=== PATIENT | female | born 1980 | race Caucasian/White ===

== ENCOUNTER 2020-09-20 14:54 | Outpatient (REF) | payer OTHER, SELFPAY ==
[2020-09-20 16:50] LABS: MANUAL DIFF FLAG NO
[2020-09-20 16:54] LABS: Basophils Percent Auto 0.4 % (0-2); Eosinophils Absolute Auto 0.1 X10*3/uL (0.0-0.4); Eosinophils Percent Auto 1.5 % (0-4); Hematocrit 38.5 % (37-47); Hemoglobin 12.9 g/dl (12.0-16.0); Imm Gran Abs Auto 0.01 X10*3/uL (0.00-0.03); Imm Gran Pct Auto 0.2 % (0.0-0.4); Lymphocytes Absolute Auto 1.5 X10*3/uL (1.2-4.9); Lymphocytes Percent Auto 32.6 % (20-40); Mean Corpuscular HGB Conc 33.5 g/dl (31.0-35.0); Mean Corpuscular Hemoglobin 30.1 pg (27.0-33.0); Mean Platelet Volume 9.8 fL (9.4-12.3); Monocytes Absolute Auto 0.4 X10*3/uL (0.1-1.2); Monocytes Percent Auto 7.6 % (2-11); Neutrophils Absolute Auto 2.7 X10*3/uL (2.0-8.3); Neutrophils Percent Auto 57.7 % (45-73); Platelet Count 224 X10*3/uL (160-400); Red Blood Count 4.28 X10*6/uL (4.20-5.50); Red Cell Distribution Width 12.4 % (11.0-16.0); White Blood Count 4.6 X10*3/uL (4.8-10.8)
[2020-09-20 17:35] LABS: Alanine Aminotransferase 14 U/L (0-31); Albumin Level 4.3 g/dL (3.5-5.0); Alkaline Phosphatase 54 U/L (39-117); Amylase 59 U/L (28-100); Aspartate Amino Transferase 19 U/L (5-31); Bilirubin Direct 0.7 mg/dL (0.0-0.5); Bilirubin Total 1.6 mg/dL (0.0-1.0); Lipase 50 U/L (8-78); Total Protein 6.6 g/dL (6.5-8.0)
== END 2020-09-20 14:55 | disposition home or self-care (01) ==
LOC: HO.LAB 14:54
PROVIDERS: Visit Provider Internal Medicine
DX: R10.84 Generalized abdominal pain (principal)
CPT/HCPCS: 36415; 80076; 82150; 83690; 85025

== ENCOUNTER 2020-09-23 07:16 | Outpatient (REF) | payer OTHER, SELFPAY ==
--- NOTE | 2020-09-23 | US_ITS ---
EXAMINATION: US ABDOMEN COMPLETE CLINICAL INFORMATION: Abdominal pain, acute, generalized. COMPARISON: Report of abdomen ultrasound 09/10/17 TECHNIQUE: Real-time imaging of the abdominal viscera. FINDINGS: PANCREAS: No suspicious abnormality in the visualized portions of the pancreas ABDOMINAL AORTA: The proximal, mid, and distal segments are normal in caliber. INFERIOR VENA CAVA: Visualized portions are normal. LIVER: No suspicious abnormality. The liver is normal in size. The liver contour is normal. Parenchymal echogenicity is normal. No focal hepatic lesion. There is no intrahepatic biliary duct dilatation seen. GALLBLADDER: Normal. The gallbladder is physiologically distended without evidence of stones, sludge, polyps, wall thickening or pericholecystic fluid. No reported tenderness to transducer pressure over the gallbladder. COMMON BILE DUCT: Normal in caliber measuring 0.3 cm in diameter. RIGHT KIDNEY: Normal. No hydronephrosis. No renal calculi or focal parenchymal lesions. The kidney measures 9.3 cm in maximum dimension. LEFT KIDNEY: Normal. No hydronephrosis. No renal calculi or focal parenchymal lesions. The kidney measures 9.4 cm in maximum dimension. SPLEEN: There is a small splenule of no clinical significance. The spleen measures 11.3 cm in maximum dimension. FREE FLUID: None. US/US abdomen complete IMPRESSION: No abnormality demonstrated. Specifically no cholelithiasis or biliary dilation.
== END 2020-09-23 07:17 | disposition home or self-care (01) ==
LOC: HO.US 07:16
PROVIDERS: Visit Provider Internal Medicine
DX: R10.84 Generalized abdominal pain (principal)
CPT/HCPCS: 76700

== ENCOUNTER 2020-10-11 08:46 | Outpatient (REF) | payer OTHER, SELFPAY ==
[2020-10-11 09:44] LABS: Estimated Average Glucose 80 mg/dL; Hemoglobin A1c % 4.4 %
== END 2020-10-11 08:47 | disposition home or self-care (01) ==
LOC: HO.LAB 08:46
PROVIDERS: PCP Nurse Practitioner Adult Health; Visit Provider Pediatrics
DX: E10.3299 Type 1 diabetes mellitus with mild nonproliferative diabetic retinopathy without macular edema, unspecified eye (principal)
CPT/HCPCS: 83036

== ENCOUNTER → 2021-01-31 07:34 | Outpatient (REF) | payer OTHER, SELFPAY ==
--- NOTE | ~2021-01-31 | NM_ITS ---
EXAMINATION: RADIONUCLIDE SOLID FOOD GASTRIC EMPTYING 4-HOUR STUDY CLINICAL INFORMATION: Early satiety, abdominal pain, type 1 diabetes mellitus. COMPARISON: No previous gastric emptying study is available for comparison. TECHNIQUE: A standard meal consisting of 4 oz of Egg Beaters brand equivalent tagged was 1.0 mCi Tc-99m Sulfur Colloid, 8 oz water and 2 slices of toast with jelly was administered orally to the patient. Images were obtained using a dual head gamma camera in the anterior and posterior projections over of the stomach immediately post ingestion and at hourly intervals up to 4 hours post ingestion. The anterior and posterior counts at each time interval were averaged using the geometric mean and expressed as percentage of the immediate post ingestion counts. FINDINGS: There is good visualization of activity in the stomach immediately post ingestion. As the study progresses, there is good clearance of activity from the stomach and visualization of progressively increasing small bowel activity. By the end of the study, there is almost no retention noted in the stomach. Retention in the stomach at each time interval was: 1 hour 81% (normal 37%-90%) 2 hours 22% (normal 30%-60%) 3 hours 5% 4 hours 3% (normal 0%-10%) NM/NM gastric emptying study IMPRESSION: Normal 4-hour solid food gastric emptying study.
== END ==
LOC: HO.NUCMED 07:34
PROVIDERS: PCP Nurse Practitioner Adult Health; Visit Provider Internal Medicine
DX: R10.84 Generalized abdominal pain (principal); R68.81 Early satiety
CPT/HCPCS: 78264; A9541

== ENCOUNTER 2021-05-06 10:18 | Outpatient (REF) | payer OTHER, SELFPAY ==
[2021-05-06 11:17] LABS: MANUAL DIFF FLAG NO
[2021-05-06 11:27] LABS: Basophils Percent Auto 0.4 % (0-2); Eosinophils Absolute Auto 0.1 X10*3/uL (0.0-0.4); Hematocrit 40.8 % (37-47); Hemoglobin 13.5 g/dl (12.0-16.0); Imm Gran Abs Auto 0.02 X10*3/uL (0.00-0.03); Imm Gran Pct Auto 0.4 % (0.0-0.4); Lymphocytes Absolute Auto 1.4 X10*3/uL (1.2-4.9); Lymphocytes Percent Auto 29.7 % (20-40); Mean Corpuscular HGB Conc 33.1 g/dl (31.0-35.0); Mean Corpuscular Hemoglobin 29.3 pg (27.0-33.0); Mean Corpuscular Volume 88.5 fL (80-98); Mean Platelet Volume 9.9 fL (9.4-12.3); Monocytes Absolute Auto 0.4 X10*3/uL (0.1-1.2); Monocytes Percent Auto 9.3 % (2-11); Neutrophils Absolute Auto 2.7 X10*3/uL (2.0-8.3); Neutrophils Percent Auto 57.2 % (45-73); Platelet Count 241 X10*3/uL (160-400); Red Blood Count 4.61 X10*6/uL (4.20-5.50); Red Cell Distribution Width 12.3 % (11.0-16.0); White Blood Count 4.7 X10*3/uL (4.8-10.8)
[2021-05-06 11:30] LABS: Estimated Average Glucose 88 mg/dL; Hemoglobin A1c % 4.7 %
[2021-05-06 11:43] LABS: Alanine Aminotransferase 17 U/L (0-31); Albumin Level 4.6 g/dL (3.5-5.0); Alkaline Phosphatase 54 U/L (39-117); Anion Gap 13 (12-20); Aspartate Amino Transferase 23 U/L (5-31); Bilirubin Total 2.3 mg/dL (0.0-1.0); Blood Urea Nitrogen 6 mg/dL (9-16); Calcium 9.5 mg/dL (8.4-10.2); Carbon Dioxide 25 mmol/L (22-29); Chloride 106 mmol/L (96-108); Cholesterol 124 mg/dL; Estimated Glomerular Filt Rate > 60; Glucose Random 111 mg/dL (60-115); HDL Cholesterol 65 mg/dL; LDL Cholesterol Calculated 48 mg/dl; Potassium 4.2 mmol/L (3.3-5.1); Sodium 140 mmol/L (135-145); Triglycerides 59 mg/dL
[2021-05-06 11:48] LABS: Creatinine Urine 11.93 mg/dL; Microalbumin Urine < 5.0 mg/L
[2021-05-06 12:05] LABS: Thyroid Stimulating Hormone 1.86 uIU/mL (0.32-4.0)
== END 2021-05-06 10:19 | disposition home or self-care (01) ==
LOC: HO.LAB 10:18
PROVIDERS: PCP Nurse Practitioner Adult Health; Visit Provider Pediatrics
DX: E10.3293 Type 1 diabetes mellitus with mild nonproliferative diabetic retinopathy without macular edema, bilateral (principal)
CPT/HCPCS: 36415; 80053; 80061; 82043; 83036; 84443; 85025

== ENCOUNTER 2021-06-16 09:29 | Outpatient (REF) | payer OTHER, SELFPAY ==
[2021-06-16 11:10] LABS: Glucose Urine UA NEG (NEG); Leukocyte Esterase Urine NEG (NEG); Nitrite Urine NEG (NEG); Specific Gravity - Urine <= 1.005 (1.005-1.025); Urine Blood NEG (NEG); Urine Ketones NEG (NEG); Urine Protein NEG (NEG-TRACE)
[2021-06-16 11:13] LABS: Appearance Urine CLEAR; Color Urine STRAW
== END 2021-06-16 09:30 | disposition home or self-care (01) ==
LOC: HO.LAB 09:29
PROVIDERS: PCP Nurse Practitioner Adult Health; Visit Provider Internal Medicine
DX: R39.198 Other difficulties with micturition (principal)
CPT/HCPCS: 81003; 87086

== ENCOUNTER 2021-07-26 07:49 | Day surgery (SDC) | payer OTHER, SELFPAY ==
[2021-07-20 10:16] VITALS: BMI 19.3
--- NOTE | 2021-07-25 08:32 | P.CONAN_ITS ---
Documented by User: Debbie Lutz NP 07/25/21 08:33 HPI - Anesthesia Eval Consult details Narrative: 40yo F for Colonoscopy PMFSH Past Medical History Medical History Anxiety Asthma Constipation GERD (gastroesophageal reflux disease) History of irregular heartbeat History of seizure Hx of constipation IBS (irritable bowel syndrome) IDDM (insulin dependent diabetes mellitus) Insulin pump in place Surgical History Surgical History (Updated 07/20/21 @ 10:10 by Lynne Irby RN) History of esophagogastroduodenoscopy (EGD) Hx of colonoscopy Social History Social History Patient Tobacco Use Status: Never used Tobacco Are you DNR?: No Advance Directives: No Advance Directives Information Provided: No Advance Directives on File: No Patient : No FDLMP: 07/13/2021 Meds Allergies Allergy/AdvReac Type Severity Reaction Status Date / Time Penicillins [PENICILLINS] Allergy Unknown unknown Verified 07/26/21 08:30 Home Medications Medication Instructions Recorded Confirmed Last Taken Type cholecalciferol (vitamin D3) 50 1 cap PO DAILY 07/20/21 07/20/21 Unknown History mcg (2,000 unit) capsule cyanocobalamin (vitamin B-12) 1,000 mcg SUBLINGUAL DAILY 07/20/21 07/20/21 Unknown History 1,000 mcg sublingual tablet dicyclomine 10 mg capsule 10 cap PO QID PRN 07/20/21 07/20/21 Unknown History famotidine 40 mg tablet 1 tab PO BID PRN 07/20/21 07/20/21 Unknown History hyoscyamine sulfate 0.125 mg tablet 1 tab PO Q4-6H PRN 07/20/21 07/20/21 Unknown History insulin aspart U-100 100 unit/mL 0 - 70 unit SUBCUT DAILY 07/20/21 07/20/21 Unknown History subcutaneous solution (Novolog U-100 Insulin aspart) omeprazole 20 mg capsule,delayed 20 mg PO DAILY PRN 07/20/21 07/20/21 Unknown History release Exam Exam Date and Time: July 25, 2021 0832 Height,Weight and Vital Signs: Height 5 ft 2 in Weight 48.081 kg Pertinent Lab Results Pertinent Lab Results: Laboratory Tests 05/06/21 05/06/21 10:30 10:30 WBC 4.7 L Hgb 13.5 Hct 40.8 Plt Count 241 Sodium 140 Potassium 4.2 Chloride 106 Carbon Dioxide 25 BUN 6 L Creatinine 0.87 Assessment and Plan Assessment Anesthesia Assessment: Chart Reviewed Documented by User: Peyton Brooks MD 07/26/21 08:58 [facility] Past Medical History Medical History Anxiety Asthma Constipation GERD (gastroesophageal reflux disease) History of irregular heartbeat History of seizure Hx of constipation IBS (irritable bowel syndrome) IDDM (insulin dependent diabetes mellitus) Insulin pump in place Family History Family history of problems with anesthesia: No Surgical History Surgical History (Updated 07/20/21 @ 10:10 by Lynne Irby RN) History of esophagogastroduodenoscopy (EGD) Hx of colonoscopy History of Problems with Anesthesia: No Social History Social History Patient Tobacco Use Status: Never used Tobacco Are you DNR?: No Advance Directives: No Advance Directives Information Provided: No Advance Directives on File: No Patient : No FDLMP: 07/13/2021 Meds Allergies Allergy/AdvReac Type Severity Reaction Status Date / Time Penicillins [PENICILLINS] Allergy Unknown unknown Verified 07/26/21 08:30 Home Medications Medication Instructions Recorded Confirmed Last Taken Type cholecalciferol (vitamin D3) 50 1 cap PO DAILY 07/20/21 07/20/21 Unknown History mcg (2,000 unit) capsule cyanocobalamin (vitamin B-12) 1,000 mcg SUBLINGUAL DAILY 07/20/21 07/20/21 Unknown History 1,000 mcg sublingual tablet dicyclomine 10 mg capsule 10 cap PO QID PRN 07/20/21 07/20/21 Unknown History famotidine 40 mg tablet 1 tab PO BID PRN 07/20/21 07/20/21 Unknown History hyoscyamine sulfate 0.125 mg tablet 1 tab PO Q4-6H PRN 07/20/21 07/20/21 Unknown History insulin aspart U-100 100 unit/mL 0 - 70 unit SUBCUT DAILY 07/20/21 07/20/21 Unknown History subcutaneous solution (Novolog U-100 Insulin aspart) omeprazole 20 mg capsule,delayed 20 mg PO DAILY PRN 07/20/21 07/20/21 Unknown History release Exam Airway Mallampati Class: II TM Dist: >3cm Neck ROM: Full Assessment and Plan Assessment Anesthesia Assessment: Anesthesia Plan Discussed Final Anesthetic Review Family History of Problems with Anesthesia: No History of Problems with Anesthesia: No NPO: Yes ASA Class: III Final Preanesthetic Review: No Changes in Pt Med Stat, Meds/Allgs Chart Reviewed, Consent Obtained/Reviewed and Anes Risks/Benef Reviewed Patient Risk: Intermediate Procedure Risk: Low Assessment/Block/Sedation in SS: Assess/Block/Sedation-SS Anesthetic Plan Anesthetic Plan: MAC: Disposition: Standard PACU
[2021-07-26 08:18] VITALS: BP 114/63; PULSE 57; RESP 16; TEMP 36.6; O2SAT 100
[2021-07-26 08:18] LABS: UPreg QC Valid YES; Urine Pregnancy NEGATIVE (NEGATIVE)
[2021-07-26] MEDS: Lactated Ringers 1,000 ML 100 ML IVCONT (08:30)
--- NOTE | 2021-07-26 10:36 | PM.OP ---
Brief Operative Note Date of Service: 07/26/21 Pre-op diagnosis: Change in bowel habits Post-op diagnosis: other (Internal hemorrhoids) Procedure: Colonoscopy to the cecum and TI Surgeon: Jesus Rocha Anesthesia: MAC Was an Bank Vault Clerk used for this Procedure?: No Estimated blood loss (mL): 0 Pathology: none sent Condition: stable Disposition: PACU
[2021-07-26 10:38] VITALS: BP 96/39; PULSE 78; RESP 16; TEMP 36.3; O2SAT 100
[2021-07-26 10:53] VITALS: BP 104/53; PULSE 68; RESP 17; O2SAT 100
[2021-07-26 10:54] LABS: Glucose, Whole Blood 96 mg/dL (60-115)
[2021-07-26 11:05] VITALS: BP 103/53; PULSE 68; RESP 17; TEMP 36.3; O2SAT 100
--- NOTE | 2021-07-26 14:07 | OP_ITS ---
SURGEON: Jesus Rocha MD INDICATIONS: The patient presents for evaluation of change in bowel habits. Full consent has been obtained from her for this, including risks of bleeding and perforation. PREOPERATIVE DIAGNOSIS: Change in bowel habits. POSTOPERATIVE DIAGNOSIS: PROCEDURE PERFORMED: Colonoscopy to cecum and terminal ileum. ESTIMATED BLOOD LOSS: COMPLICATIONS: ANESTHESIA: Monitored anesthesia care. ASSISTANTS: SPECIMENS: POSTOPERATIVE DIAGNOSES: Change in bowel habits, internal hemorrhoids. DESCRIPTION OF PROCEDURE: The patient was placed in the left lateral decubitus position. The digital rectal exam revealed no abnormalities. The Olympus video pediatric colonoscope was entered into the rectum and advanced easily to the cecum. Once in the cecum, I did identify normal-appearing cecal pouch with appendiceal orifice and a normal-appearing ileocecal valve. The terminal ileum was cannulated and appeared normal. The scope was withdrawn back in the colon. The entire cecum and ileocecal valve appeared normal. The scope was slowly withdrawn assessing all mucosal surfaces carefully. Preparation was excellent. I did not visualize any sign of polyps, colitis, nor angiodysplasia. There was an occasional diverticulum noted in the sigmoid colon. In the rectum, scope was retroflexed visualizing internal hemorrhoids, but no other pathology. The rectal mucosa appeared normal. The scope was straightened out and withdrawn from the patient. She tolerated the procedure well and was returned to recovery area in stable condition. IMPRESSION: 1. Occasional sigmoid diverticulosis. 2. Internal hemorrhoids. PLAN: Given today's negative exam and negative family history, I would recommend a repeat colonoscopy at age 49 for further screening. She was advised to continue her current regimen for the irritable bowel syndrome with fiber and antispasmodics. She will see me otherwise on a p.r.n. basis. MD KRISTINA Green/FORREST / [phone]
== END 2021-07-26 11:35 | disposition home or self-care (01) ==
PROVIDERS: Nurse Practitioner; PCP Nurse Practitioner Adult Health; Visit Provider Internal Medicine
PROC: 0DJD8ZZ Inspection of Lower Intestinal Tract, Via Natural or Artificial Opening Endoscopic (ICD-10-PCS; CPT 45378; principal; 2021-07-26 09:10)
DX: R19.4 Change in bowel habit (principal); K57.30 Diverticulosis of large intestine without perforation or abscess without bleeding; K64.8 Other hemorrhoids; K58.9 Irritable bowel syndrome, unspecified; E80.4 Gilbert syndrome; E11.9 Type 2 diabetes mellitus without complications; Z96.41 Presence of insulin pump (external) (internal); Z79.899 Other long term (current) drug therapy; Z79.4 Long term (current) use of insulin; Z88.0 Allergy status to penicillin
CPT/HCPCS: 45378; 81025; 82947